=== PATIENT | male | born 1970 | race African-American/Black ===

== ENCOUNTER 2017-05-26 17:48 | Emergency (ER) | payer SELFPAY ==
[~2017-05-26] VITALS: Ht 185.4 cm; Wt 99.8 kg
--- NOTE | 2017-05-26 17:50 | NUR ---
PRESENTS SELF TO ED DUE TO SORETHROAT, COUGH AND CONGESTION X 1 WEEK. PATIENT IS AAO4. APPEARS IN NO APPARENT DISTRESS, RESPIRATION EVEN AND UNLABORED. SKIN IS WARM TO TOUCH AND NON DIAPHORETIC. PATIENT IS AFEBRILE. VSS.
[2017-05-26 18:40] VITALS: BP 154/91
--- NOTE | 2017-05-26 18:40 | NUR ---
Patient discharged to home in stable condition. Written and verbal after care instructions given. Patient verbalizes understanding of instruction.
== END 2017-05-26 18:41 | disposition home or self-care (01) ==
LOC: ER 17:50
DX: J20.9 Acute bronchitis, unspecified (principal)
CPT/HCPCS: A4606; Z7610